=== PATIENT | female | born 1990 | race Caucasian/White ===

== ENCOUNTER 2019-07-19 20:38 | Emergency (ER) | payer MEDICAID ==
[~2019-07-19] VITALS: Ht 165.1 cm; Wt 81.7 kg
[2019-07-19 22:14] VITALS: BP 121/72
--- NOTE | 2019-07-20 17:09 | EKG ---
[place] [address] ELECTROCARDIOGRAM REPORT Name: SARI GATES Room: [facility]#: [id number] Admission: 07/19/19 Attend Phys: Discharge: 07/19/19 Date of : 86 Report #: [id number] THIS REPORT FOR: //name// [facility] ED Test Date: 2019-07-19 Test Time: 20:42:40 Pat Name: SARI GATES Department: Room: Gender: F [employer]: [place] : 1990 Requested By: Omayra Mcclellan Order Number: [id number] Reading MD: Mayito Bejarano Measurements Intervals [place] Rate: 96 P: 64 MO: 157 QRS: 29 QRSD: 99 T: 38 QT: 371 QTc: 469 Interpretive Statements Sinus rhythm No previous ECG available for comparison Electronically Signed On 07-20-2019 17:08:46 ELECTRONICS MECHANIC by Mayito Bejarano [email or web address] <ELECTRONICALLY SIGNED> By: Mayito Bejarano MD, [facility] 07/20/19 1708 2042 41 Mayito Bejarano MD, FACC /EPI
== END 2019-07-19 22:18 ==
LOC: M.ERS 20:38
DX: F29 Unspecified psychosis not due to a substance or known physiological condition (principal)

== ENCOUNTER 2019-07-19 23:12 | Emergency (ER) | payer MEDICAID ==
[~2019-07-19] VITALS: Ht 165.1 cm; Wt 81.7 kg
[2019-07-20 00:19] LABS: ICTOTEST (BILI CONFIRMATORY) Negative (Negative); URINE BILIRUBIN 1+ (Negative); URINE BLOOD NEGATIVE (Negative); URINE CLARITY CLEAR; URINE COLOR DARK YELLOW; URINE GLUCOSE-RANDOM NEGATIVE (Negative); URINE KETONES TRACE (Negative); URINE LEUKOCYTES-REFLEX NEGATIVE (Negative); URINE NITRITE-REFLEX NEGATIVE (Negative); URINE PROTEIN TRACE (Negative); URINE SPECIFIC GRAVITY >= 1.030 (1.005-1.030); URINE UROBILINOGEN 0.2 E.U./dl (0.2-1.0)
[2019-07-20 00:27] LABS: AMP/METHAMP POSITIVE (Negative); BARBITURATES Negative (Negative); BENZODIAZEPINES POSITIVE (Negative); COCAINE Negative (Negative); METHADONE Negative (Negative); OPIATES Negative (Negative); PCP Negative (Negative); THC POSITIVE (Negative)
[2019-07-20 01:47] VITALS: BP 129/78
== END 2019-07-20 01:48 | disposition home or self-care (01) ==
LOC: M.ERS 23:12
PROVIDERS: Emergency Medicine
DX: F15.959 Other stimulant use, unspecified with stimulant-induced psychotic disorder, unspecified (principal)